=== PATIENT | male | born 1960 | race African-American/Black ===

== ENCOUNTER 2018-02-06 15:41 | Emergency (ER) | payer MEDICAID, OTHER ==
[~2018-02-06 15:41] MED LIST: NAPR550 PO; Z.0.NO CURRENT MEDS
[2018-02-06] MEDS ORDERED: SODIUM CHLOR 0.9% 1000 ML INJ 1,000 ML IV SCH (16:00)
[2018-02-06] MEDS: levETIRAcetam INJ 100 ML IV ONE ×2 (16:00→16:21)
[2018-02-06 16:02] VITALS: BP 117/76; PULSE 55; RESP 16; TEMP 98.2; O2SAT 99
--- NOTE | 2018-02-06 16:19 | PD ---
HPI Chief Complaint: Seizure Time Seen by Provider: 15:48 Travel History International Travel<30 days: No Contact w/Intl Traveler<30days: No Traveled to known affect area: No History of Present Illness HPI Is a 57-year-old man, presents emergency department for seizure. Patient reports a history of seizures. On medication in the past but not now. Not sure what the name is. States his usually manages his medications for him. Was arrested by law enforcement along custody had about a 1-2 minute generalized tonic-clonic seizure. Patient states he has not had a seizure in some time. Otherwise had been feeling generally well and healthy. Denies any recent illness or injury. EMS reports that he had postictal period that resolved in route. History Past Medical History Narrative Medical Seizures Patient denies any other medical history. Social History Alcohol Use: Yes (RARE OCCASION ( 1 TIME EVERY 3 MONTHS)) Tobacco Use: Yes (1/2 PPD) Allergies-Medications (Allergen,Severity, Reaction): Coded Allergies: No Known Allergies (Verified Allergy, Unknown, 02/06/18) Reported Meds & Prescriptions Reported Meds & Active Scripts Active Anaprox Ds (Naproxen Sodium) 550 Mg Tab 550 Mg PO BID Reported No Current Meds (Miscellaneous Medication) Misc Review of Systems ROS Limitations: Poor Historian Except as stated in HPI: all other systems reviewed are Neg Physical Exam Exam Limitations: Poor Historian Narrative GENERAL: 57-year-old man, no acute distress. Still slow to respond to questions a little bit. SKIN: Focused skin assessment warm/dry. HEAD: Atraumatic. Normocephalic. EYES: Pupils equal and round. No scleral icterus. No injection or drainage. ENT: No nasal bleeding or discharge. Mucous membranes pink and moist. NECK: Trachea midline. No JVD. CARDIOVASCULAR: Regular rate and rhythm. No murmur appreciated. RESPIRATORY: No accessory muscle use. Clear to auscultation. Breath sounds equal bilaterally. GASTROINTESTINAL: Abdomen soft, non-tender, nondistended. Hepatic and splenic margins not palpable. MUSCULOSKELETAL: No obvious deformities. No clubbing. No cyanosis. No edema. NEUROLOGICAL: Awake and alert, but a little bit sluggish. No obvious cranial nerve deficits. Motor grossly within normal limits. Normal speech. Data Data Last Documented VS Vital Signs Date Time Temp Pulse Resp B/P (MAP) Pulse Ox O2 Delivery O2 Flow Rate FiO2 02/06/18 16:02 98.2 55 16 117/76 (90) 99 Orders Orders Complete Blood Count With Diff (02/06/18 15:49) Comprehensive Metabolic Panel (02/06/18 15:49) Iv Access Insert/Monitor (02/06/18 15:49) Sodium Chlor 0.9% 1000 Ml Inj (Ns 1000 M (02/06/18 16:00) Levetiracetam Inj (Keppra Inj) (02/06/18 16:00) Labs Laboratory Tests Test 02/06/18 16:20 White Blood Count 3.5 TH/MM3 Red Blood Count 3.66 MIL/MM3 Hemoglobin 11.5 GM/DL Hematocrit 35.3 % Mean Corpuscular Volume 96.5 FL Mean Corpuscular Hemoglobin 31.4 PG Mean Corpuscular Hemoglobin Concent 32.6 % Red Cell Distribution Width 12.9 % Platelet Count 190 TH/MM3 Mean Platelet Volume 7.4 FL Neutrophils (%) (Auto) 50.2 % Lymphocytes (%) (Auto) 36.6 % Monocytes (%) (Auto) 9.8 % Eosinophils (%) (Auto) 1.6 % Basophils (%) (Auto) 1.8 % Neutrophils # (Auto) 1.7 TH/MM3 Lymphocytes # (Auto) 1.3 TH/MM3 Monocytes # (Auto) 0.3 TH/MM3 Eosinophils # (Auto) 0.1 TH/MM3 Basophils # (Auto) 0.1 TH/MM3 CBC Comment DIFF FINAL Differential Comment Blood Urea Nitrogen 16 MG/DL Creatinine 0.84 MG/DL Random Glucose 81 MG/DL Total Protein 6.8 GM/DL Albumin 3.6 GM/DL Calcium Level 9.1 MG/DL Alkaline Phosphatase 64 U/L Aspartate Amino Transf (AST/SGOT) 22 U/L Alanine Aminotransferase (ALT/SGPT) 27 U/L Total Bilirubin 0.4 MG/DL Sodium Level 140 MEQ/L Potassium Level 4.4 MEQ/L Chloride Level 109 MEQ/L Carbon Dioxide Level 27.4 MEQ/L Anion Gap 4 MEQ/L Estimat Glomerular Filtration Rate 114 ML/MIN [facility] Medical Decision Making Medical Screen Exam Complete: Yes Emergency Medical Condition: Yes Interpretation(s) LABS: CBC is remarkable for little bit a low white count, low hemoglobin. CMP is unremarkable. 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 Reports history of seizure but not had one in some time. Is a poor historian and cannot give much additional history. I called both phone numbers we had an system, both listed as a sister, one was disconnected, no one had a voicemail with a different name. Will check basic labs. We will give him a dose of Keppra. Likely outpatient follow-up, seizure precautions which really would include not climbing a ladder with a chainsaw doing tree work. FINAL: Patient refusing any antiepileptics here. States he is worried because is not sure what he is taking. I tried to reassure him the Keppra was safe and had a wide therapeutic window but is pretty adamant. He states he will follow- up with his and as he has an appointment next week with his doctor. Again given strict seizure precautions. Diagnosis Primary Impression: Seizure Patient Instructions: General Instructions Additional Instructions: Do not drive or operate heavy machinery until cleared by neurology. You should avoid being in any situation where if you had a seizure it could be dangerous such as swimming, looking on a ladder, or other such activities. Return to the emergency department for any seizures lasting more than 5 minutes , [id number] seizures, or seizures with prolonged confusion afterwards. Disposition: 01 DISCHARGE HOME Condition: Stable Dwayne Garcia MD Feb 06, 2018 16:19
[2018-02-06 16:37] LABS: AUTOMATED NEUTROPHIL # 1.7 TH/MM3 (1.8-7.7); BASOPHIL # 0.1 TH/MM3 (0-0.2); BASOPHIL % 1.8 % (0.0-2.0); EOSINOPHIL # 0.1 TH/MM3 (0-0.4); EOSINOPHIL % 1.6 % (0.0-4.0); HEMATOCRIT 35.3 % (39.0-51.0); HEMOGLOBIN 11.5 GM/DL (13.0-17.0); LYMPH % 36.6 % (9.0-44.0); LYMPHOCYTE # 1.3 TH/MM3 (1.0-4.8); MEAN CELL VOLUME 96.5 FL (80.0-100.0); MEAN CORPUSCULAR HEMOGLOBIN 31.4 PG (27.0-34.0); MEAN CORPUSCULAR HGB CONC 32.6 % (32.0-36.0); MEAN PLATELET VOLUME 7.4 FL (7.0-11.0); MONO % 9.8 % (0.0-8.0); MONOCYTE # 0.3 TH/MM3 (0-0.9); NEUT % 50.2 % (16.0-70.0); PLATELET COUNT 190 TH/MM3 (150-450); RED BLOOD COUNT 3.66 MIL/MM3 (4.50-5.90); RED CELL DISTRIBUTION WIDTH 12.9 % (11.6-17.2); WHITE BLOOD COUNT 3.5 TH/MM3 (4.0-11.0)
[2018-02-06 16:44] LABS: CHLORIDE 109 MEQ/L (98-107); SODIUM (NA) 140 MEQ/L (136-145)
[2018-02-06 16:46] LABS: CALCIUM 9.1 MG/DL (8.5-10.1)
[2018-02-06 16:47] LABS: ALBUMIN 3.6 GM/DL (3.4-5.0); BICARBONATE 27.4 MEQ/L (21.0-32.0); BLOOD UREA NITROGEN 16 MG/DL (7-18); GLUCOSE,RANDOM 81 MG/DL (74-106)
[2018-02-06 16:50] LABS: ALT (GPT) 27 U/L (12-78); AST (GOT) 22 U/L (15-37); CREATININE 0.84 MG/DL (0.60-1.30); GLOMERULAR FILTRATION RATE 114 ML/MIN (>89)
[2018-02-06 16:52] LABS: TOTAL BILIRUBIN ADULT 0.4 MG/DL (0.2-1.0); TOTAL PROTEIN 6.8 GM/DL (6.4-8.2)
[2018-02-06 16:53] LABS: ALKALINE PHOSPHATASE 64 U/L (45-117)
== END 2018-02-06 17:10 | disposition home or self-care (01) ==
LOC: PHED 15:41
DX: G40.409 Other generalized epilepsy and epileptic syndromes, not intractable, without status epilepticus (principal); F17.200 Nicotine dependence, unspecified, uncomplicated
CPT/HCPCS: 80053; 85025; 96360; 99284; J7030; J1953